=== PATIENT | female | born 1955 | race Caucasian/White ===

== ENCOUNTER 2018-02-20 12:30 | Inpatient (IN) | payer SELFPAY ==
[~2018-02-20] VITALS: Ht 162.6 cm; Wt 43.1 kg
[2018-02-20] MEDS ORDERED: PROCHLORPERAZINE 5 MG/ML, 2ML ONE (12:58)
[2018-02-20] MEDS ORDERED: PROCHLORPERAZINE 5 MG/ML, 2ML IVPush ONE (13:00)
[2018-02-20] MEDS ORDERED: SODIUM CHLORIDE FLUSH 10ML SYR IVF ONE (13:00)
[2018-02-20] MEDS ORDERED: SODIUM CHLORIDE 0.9% 1,000ML IVBOLUS ONE ×2 (13:00→16:30)
[2018-02-20 13:06] LABS: BASOPHILS # (AUTO) 0.01 x10^3/uL (0-0.1); BASOPHILS % (AUTO) 0 % (0-1); EOSINOPHILS % (AUTO) 0 % (1-7); LYMPHOCYTES # (AUTO) 0.68 x10^3/uL (1-3.4); LYMPHOCYTES % (AUTO) 5 % (22-44); MD NO; MEAN CORPUSCULAR HEMOGLOBIN 32.2 pg (27.0-34.8); MEAN CORPUSCULAR HGB CONC 32.8 g/dL (32.4-35.8); MEAN CORPUSCULAR VOLUME 98.3 fL (80-100); MEAN PLATELET VOLUME 9.5 fL (7.4-10.4); MONOCYTES # (AUTO) 0.46 x10^3/uL (0.2-0.8); MONOCYTES % (AUTO) 3 % (2-9); NEUTROPHILS # (AUTO) 13.83 x10^3/uL (1.8-6.8); NEUTROPHILS % (AUTO) 92 % (42-75); PLATELET COUNT 147 x10^3/uL (130-400); RED BLOOD COUNT 4.24 x10^6/uL (3.82-5.3)
[2018-02-20 13:21] LABS: ALANINE AMINOTRANSFERASE 22 U/L (12-78); ALBUMIN 3.5 g/dL (3.4-5.0); ANION GAP 7 mmol/L (5-15); CALCIUM 9.1 mg/dL (8.5-10.1); CHLORIDE 111 mmol/L (98-107); CREATININE 0.66 mg/dL (0.55-1.02)
[2018-02-20 13:23] LABS: ALKALINE PHOSPHATASE 47 U/L (45-117); BILIRUBIN,TOTAL 0.4 mg/dL (0.2-1.0); TOTAL PROTEIN 6.5 g/dL (6.4-8.2)
[2018-02-20 15:23] LABS: MICROSCOPIC NOT IND
[2018-02-20 15:26] LABS: CULTURE INDICATED? NO
[2018-02-20] MEDS ORDERED: ONDANSETRON 2MG/ML, 2ML ONE (16:21)
[2018-02-20] MEDS ORDERED: ONDANSETRON ODT 4 MG PO ONE (16:30)
[2018-02-20] MEDS ORDERED: POLYETHYLENE GLYCOL 17 GM PACKET PO PRN (19:30)
[2018-02-20] MEDS ORDERED: GUAIFENESIN/DM 200-20MG, 10ML UDC PO PRN (19:30)
[2018-02-20 19:50] VITALS: BP_SYST 114; BP_SYST 117; BP_SYST 124; BP_DIAS 72; BP_DIAS 73; BP_DIAS 77
[2018-02-20] MEDS: ENOXAPARIN 40 MG/0.4 ML SQ SCH (21:49)
[2018-02-20] MEDS: SODIUM CHLORIDE 0.9% 1,000 ML IV SCH (21:49)
[2018-02-20] MEDS ORDERED: LORA10TA75 PO (22:18)
[2018-02-20] MEDS ORDERED: PSEU120T10 PO (22:18)
[2018-02-21 02:17] VITALS: BP 99/56
[2018-02-21] MEDS: ONDANSETRON 2MG/ML, 2ML IVPush PRN ×3 (02:25→19:32)
[2018-02-21 05:43] LABS: BASOPHILS # (AUTO) 0.02 x10^3/uL (0-0.1); BASOPHILS % (AUTO) 0 % (0-1); EOSINOPHILS % (AUTO) 0 % (1-7); LYMPHOCYTES # (AUTO) 1.56 x10^3/uL (1-3.4); LYMPHOCYTES % (AUTO) 12 % (22-44); MD NO; MEAN CORPUSCULAR HEMOGLOBIN 33.1 pg (27.0-34.8); MEAN CORPUSCULAR HGB CONC 33.8 g/dL (32.4-35.8); MEAN PLATELET VOLUME 9.7 fL (7.4-10.4); MONOCYTES # (AUTO) 1.02 x10^3/uL (0.2-0.8); MONOCYTES % (AUTO) 8 % (2-9); NEUTROPHILS # (AUTO) 10.93 x10^3/uL (1.8-6.8); NEUTROPHILS % (AUTO) 81 % (42-75); PLATELET COUNT 172 x10^3/uL (130-400)
[2018-02-21 05:56] LABS: ANION GAP 9 mmol/L (5-15); CALCIUM 8.9 mg/dL (8.5-10.1); CHLORIDE 113 mmol/L (98-107); CREATININE 0.47 mg/dL (0.55-1.02)
[2018-02-21 07:00] VITALS: BP 97/49
[2018-02-21 07:02] VITALS: BP 97/61
[2018-02-21 07:04] VITALS: BP 101/64
[2018-02-21] MEDS: ACETAMINOPHEN 325 MG TABLET PO PRN ×3 (10:23→19:32)
[2018-02-21] MEDS: SODIUM CHLORIDE 0.9% 1,000 ML IV SCH ×2 (10:24→18:28)
[2018-02-21 14:05] VITALS: BP 93/52
[2018-02-21 18:55] VITALS: BP 134/69
[2018-02-21] MEDS: ENOXAPARIN 40 MG/0.4 ML SQ SCH (20:14)
[2018-02-22 02:25] VITALS: BP 115/72
[2018-02-22] MEDS: SODIUM CHLORIDE 0.9% 1,000 ML IV SCH ×2 (04:20→14:00)
[2018-02-22] MEDS: ONDANSETRON 2MG/ML, 2ML IVPush PRN (05:40)
[2018-02-22 09:30] VITALS: BP 132/79
[2018-02-22 09:32] VITALS: BP 143/85
[2018-02-22 09:34] VITALS: BP 130/78
[2018-02-22] MEDS ORDERED: ASPIRIN 81 MG TABLET EC PO ONE (13:00)
[2018-02-22] MEDS ORDERED: ATORVASTATIN 20 MG TABLET PO ONE (13:00)
[2018-02-22] MEDS ORDERED: ASPI-496 PO (13:01)
[2018-02-22] MEDS ORDERED: ATOR20TA9 PO (13:01)
[2018-02-22 13:46] VITALS: BP 133/40
[2018-02-22 13:57] LABS: CHOL/HDL RATIO 2.7; LDL/HDL RATIO 1.1 (0.5-3.0)
== END 2018-02-22 15:00 | disposition home or self-care (01) | DRG 64 ==
LOC: ED 14:08 → EDIP 18:38 → 4WST 20:10 → DCLOUNGE 02-22 14:37
PROVIDERS: ADMIT Hospitalist; ATTEND Hospitalist
DX: I63.9 Cerebral infarction, unspecified (principal); E43 Unspecified severe protein-calorie malnutrition; F17.210 Nicotine dependence, cigarettes, uncomplicated; F41.9 Anxiety disorder, unspecified; J32.9 Chronic sinusitis, unspecified
CPT/HCPCS: 36415; 70450; 70551; 71045; 80048; 80053; 80061; 81003; 83690; 83735; 84100; 85025; 93005; 93306; 96361; 96374; 99285; J1650; J2405; Q0162; J0780; J7030